=== PATIENT | male | born 1975 | race African-American/Black ===

== ENCOUNTER → 2019-12-11 | Outpatient (CLI) | payer OTHER ==
--- NOTE | 2019-12-11 14:01 | KCIC ---
PA and lateral chest x-ray without comparison for persistent cough since April, nonsmoker, history of negative colon exam. FINDINGS: The lungs are clear. Cardiomediastinum is grossly unremarkable. No significant soft tissue or osseous abnormalities. IMPRESSION: 1. No acute cardiopulmonary abnormality. Electronically signed by: Romel Car MD (12/11/2019 1:59 PM) [id number]
== END ==
LOC: KCIC 13:06
PROVIDERS: ATTEND Internal Medicine Pulmonary Disease
DX: R05 Cough (principal)
CPT/HCPCS: 71046